=== PATIENT | female | born 1965 | race Two or more races ===

== ENCOUNTER → 2024-02-18 | Outpatient (CLI) | payer BC ==
[~2024-02-18] MED LIST: LEVO50TA61
== END | disposition home or self-care (01) ==
LOC: XYW 12:34
PROVIDERS: ATTEND Student in an Organized Health Care Education/Training Program
DX: I11.9 Hypertensive heart disease without heart failure (principal)
CPT/HCPCS: 93306

== ENCOUNTER → 2024-08-04 | Outpatient (CLI) | payer BC ==
[2024-08-04 09:37] LABS: Urine Bacteria None Seen /hpf (None Seen)
[2024-08-04 09:49] LABS: Basophils # (auto) 0 10 ^3/uL (0-0.2); Basophils % (auto) 0.7 % (0.0-2.0); Eosinophils # (auto) 0.4 10 ^3/uL (0-0.8); Eosinophils % (auto) 7.9 % (0.0-7.0); Hematocrit 42.6 % (36.0-46.0); Hemoglobin 14.3 g/dL (12.2-16.2); Lymphocytes % (auto) 37.4 % (10.0-50.0); Mean Corpuscular Hemoglobin 31.3 pg (28.0-32.0); Mean Corpuscular Hgb Conc. 33.6 g/dL (32.0-36.0); Mean Corpuscular Volume 93.1 fL (80.0-100.0); Monocytes # (auto) 0.5 10 ^3/uL (0-1.3); Neutrophils # (auto) 2.3 10 ^3/uL (1.6-8.6); Nucleated Red Blood Cells % 0.1 %; Platelet Count (auto) 206 10^3/uL (140-450); Red Blood Cells 4.58 10^6/uL (4.0-5.20); Red Cell Distribution Width 14.3 % (11.8-14.3); White Blood Cell 5.3 10^3/uL (4.4-10.8)
[2024-08-04 10:08] LABS: Urine Blood Negative /uL (Negative); Urine Clarity Clear (Clear); Urine Color Yellow (Yellow); Urine Mucus FEW (None Seen); Urine Protein, UAD Negative (Negative); Urine Specific Gravity 1.025 (1.001-1.035); Urine Squamous Epithelial Cell FEW /hpf (<5); Urine Urobilinogen Normal (Negative); Urine WBC 1 /hpf (0 - 5); Urine pH 6.5 (5.0-9.0)
[2024-08-04 10:15] LABS: Alanine Aminotransferase 25 U/L (7-40); Albumin 4.6 g/dL (3.2-4.8); Alkaline Phosphatase 99 U/L (46-116); Anion Gap 4 (5-15); Aspartate Aminotransferase 26 U/L (13-40); BUN/Creatinine Ratio 18.7 (10.0-20.0); Blood Urea Nitrogen 14 mg/dL (9-23); Calcium 10.2 mg/dL (8.7-10.4); Carbon Dioxide 30 mmol/L (20-31); Chloride 106 mmol/L (98-107); Glucose 97 mg/dL (74-106); Sodium 140 mmol/L (136-145); Triglycerides 113 mg/dL (< 150)
[2024-08-04 10:16] LABS: Bilirubin, Total 0.7 mg/dL (0.2-1.0)
[2024-08-04 10:26] LABS: Cholesterol 258 mg/dL (< 200); HDL Cholesterol 65 mg/dL (40-59); LDL Cholesterol 180 mg/dL (< 100)
== END | disposition home or self-care (01) ==
LOC: LAB 09:24
PROVIDERS: ATTEND Student in an Organized Health Care Education/Training Program
DX: I10 Essential (primary) hypertension (principal); E03.8 Other specified hypothyroidism; E78.5 Hyperlipidemia, unspecified; R73.9 Hyperglycemia, unspecified
CPT/HCPCS: 36415; 80053; 80061; 81001; 83036; 84439; 84443; 85025

== ENCOUNTER 2025-02-06 08:29 | Outpatient (CLI) | payer BC ==
[2025-02-06 09:18] LABS: Hematocrit 41.6 % (36.0-46.0); Hemoglobin 14.2 g/dL (12.2-16.2); Mean Corpuscular Hemoglobin 31.2 pg (28.0-32.0); Mean Corpuscular Volume 91.7 fL (80.0-100.0); Nucleated Red Blood Cells % 0.0 %
[2025-02-06 09:20] LABS: Urine Protein, UAD Negative (Negative)
[2025-02-06 09:39] LABS: Alanine Aminotransferase 27 U/L (7-40); Alkaline Phosphatase 87 U/L (46-116); Anion Gap 7 (5-15); BUN/Creatinine Ratio 20.0 (10.0-20.0); Blood Urea Nitrogen 14 mg/dL (9-23); Calcium 10.0 mg/dL (8.7-10.4); Carbon Dioxide 30 mmol/L (20-31); Chloride 105 mmol/L (98-107); Glucose 95 mg/dL (74-106); Potassium 4.2 mmol/L (3.5-5.1); Sodium 142 mmol/L (136-145); Total Protein 6.5 g/dL (5.7-8.2); Triglycerides 82 mg/dL (< 150)
[2025-02-06 09:40] LABS: Albumin 4.6 g/dL (3.2-4.8)
[2025-02-06 09:41] LABS: Bilirubin, Total 0.5 mg/dL (0.2-1.0); Cholesterol 142 mg/dL (< 200); HDL Cholesterol 55 mg/dL (40-59)
== END 2025-02-06 17:00 | disposition home or self-care (01) ==
LOC: LAB 08:29
PROVIDERS: ATTEND Student in an Organized Health Care Education/Training Program
DX: I10 Essential (primary) hypertension (principal); E03.8 Other specified hypothyroidism; E55.9 Vitamin D deficiency, unspecified; R73.9 Hyperglycemia, unspecified; Z12.11 Encounter for screening for malignant neoplasm of colon
CPT/HCPCS: 36415; 80053; 80061; 81001; 82274; 82306; 83036; 84439; 84443; 85025